=== PATIENT | female | born 1965 | race Asian ===

== ENCOUNTER 2021-10-29 19:07 | Emergency (ER) | payer BC ==
[2021-10-29] MEDS ORDERED: acetaminophen 325mg tablet ONE (22:16)
[2021-10-29] MEDS ORDERED: acetaminophen 325mg tablet PO ONE (22:45)
[2021-10-29] MEDS ORDERED: ondansetron/PF 4mg/2ml inj IV ONE (22:45)
[2021-10-29] MEDS ORDERED: normal saline 1000ml 1,000 ML IV ONE (22:45)
--- NOTE | 2021-10-29 22:53 | NUR ---
ivp given by reuben boyer
[2021-10-30] MEDS ORDERED: ACET-1131 PO (01:02)
--- NOTE | 2021-10-30 01:10 | NUR ---
iv dc'd pt being discharged dressing applied
== END 2021-10-30 01:11 | disposition home or self-care (01) ==
LOC: ER 19:08
DX: R51.9 Headache, unspecified (principal); R11.2 Nausea with vomiting, unspecified; Z79.899 Other long term (current) drug therapy
CPT/HCPCS: 70450; 93005; 96361; 96374; 99284; J2405; J7030; 96360